=== PATIENT | female | born 1965 | race Caucasian/White ===

== ENCOUNTER 2016-03-15 12:44 | Inpatient (IN) | payer MEDICAID ==
[~2016-03-15] VITALS: Ht 152.4 cm; Wt 106.8 kg
[2016-03-15] MEDS ORDERED: SODIUM CHLORIDE 0.9% 1,000 ML ONE (15:24)
[2016-03-15 21:00] VITALS: Ht 152.4 cm; Wt 106.8 kg
[2016-03-15] MEDS ORDERED: BISACODYL EC 5 MG TAB PO PRN (21:20)
[2016-03-15] MEDS ORDERED: MAG HYDROX 30 ML UDC PO PRN (21:20)
[2016-03-15] MEDS ORDERED: BISACODYL 10 MG SUPP RECTAL PRN (21:20)
[2016-03-15] MEDS ORDERED: SALINE FLUSH 10 ML FLUSH PRN (21:20)
[2016-03-15] MEDS ORDERED: HALOPERIDOL 5 MG/ML VIAL IV PRN (21:20)
[2016-03-15 21:56] VITALS: BP_SYST 141; RESP 18; TEMP 98.9
[2016-03-16] MEDS ORDERED: SODIUM CHLORIDE 0.9% FLUSH BAG 500 ML IV SCH (06:00)
[2016-03-16] MEDS ORDERED: SALINE FLUSH 10 ML FLUSH SCH (08:00)
== END 2016-03-15 22:08 | disposition home or self-care (01) | DRG 885 ==
LOC: ENRESERVDT → ENRESERVTM → ER 12:44 → EMR 15:03 → PSY 17:54
PROVIDERS: ADMIT Psychiatry & Neurology Psychiatry; ATTEND Psychiatry & Neurology Psychiatry
DX: F29 Unspecified psychosis not due to a substance or known physiological condition (principal); J44.9 Chronic obstructive pulmonary disease, unspecified; K21.9 Gastro-esophageal reflux disease without esophagitis; Z87.891 Personal history of nicotine dependence
CPT/HCPCS: 36415; 70450; 80053; 80307; 80320; 80329; 81003; 84439; 84443; 85025; 96360; 99223

== ENCOUNTER 2016-03-15 21:10 | Inpatient (IN) | payer MEDICAID ==
[~2016-03-15] VITALS: Ht 152.4 cm; Wt 106.1 kg
[2016-03-15] MEDS ORDERED: ACETAMINOPHEN 325 MG TAB PO PRN (21:25)
[2016-03-15] MEDS ORDERED: BISACODYL EC 5 MG TAB PO PRN (21:25)
[2016-03-15] MEDS ORDERED: SALINE FLUSH 10 ML FLUSH PRN (21:25)
[2016-03-15] MEDS ORDERED: BISACODYL 10 MG SUPP RECTAL PRN (21:25)
[2016-03-15] MEDS ORDERED: HALOPERIDOL 5 MG/ML VIAL IV PRN (21:25)
[2016-03-15] MEDS ORDERED: MAG HYDROX 30 ML UDC PO PRN (21:25)
[2016-03-15] MEDS ORDERED: [UNRECOGNIZED DRUG - OTHER] XX SCH (22:14)
[2016-03-15 22:37] VITALS: BP_SYST 134; BP_SYST 142; RESP 18; TEMP 98.8
[2016-03-15 22:39] VITALS: Ht 152.4 cm; Wt 106.1 kg
[2016-03-15] MEDS: DUONEB INH SCH (22:40)
[2016-03-15 22:44] VITALS: RESP 18
[2016-03-15] MEDS ORDERED: LEVOFLOXACIN 500 MG TAB PO ONE (22:45)
[2016-03-16] VITALS (7 sets, daily range): BP systolic 92–155; RESP 14–20; TEMP 97.5–98.6
[2016-03-16] MEDS: GABAPENTIN 300 MG CAP PO SCH ×3 (00:01→21:55)
[2016-03-16] MEDS: SODIUM CHLORIDE 0.9% 1,000 ML IV SCH ×3 (00:02→16:38)
[2016-03-16] MEDS: DUONEB INH SCH ×5 (02:43→22:51)
[2016-03-16] MEDS: SODIUM CHLORIDE 0.9% FLUSH BAG 500 ML IV SCH (06:00)
[2016-03-16] MEDS: PANTOPRAZOLE 40 MG TAB PO SCH (06:13)
[2016-03-16] MEDS: SALINE FLUSH 10 ML FLUSH SCH ×2 (08:00→20:00)
[2016-03-16] MEDS: FLUTICASONE 0.05% NA BTL NARE EACH SCH ×3 (09:00→21:54)
[2016-03-16] MEDS: LEVOFLOXACIN 250 MG TAB PO SCH (09:37)
[2016-03-16] MEDS: DOCUSATE SOD 100 MG CAP PO SCH ×2 (09:37→21:55)
[2016-03-16] MEDS: FERROUS SULF 325 MG TAB PO SCH ×3 (09:37→21:55)
[2016-03-16] MEDS ORDERED: LORAZEPAM 2 MG/ML VIAL IV PRN (17:40)
[2016-03-16] MEDS ORDERED: Atorvastatin 10 MG TAB PO SCH (21:00)
[2016-03-17] MEDS: SODIUM CHLORIDE 0.9% FLUSH BAG 500 ML IV SCH (02:35)
[2016-03-17 04:04] VITALS: BP_SYST 114; RESP 18; TEMP 97.8
[2016-03-17] MEDS: PANTOPRAZOLE 40 MG TAB PO SCH (05:56)
[2016-03-17] MEDS: DUONEB INH SCH ×2 (07:10→14:27)
[2016-03-17] MEDS: SALINE FLUSH 10 ML FLUSH SCH (08:00)
[2016-03-17 08:15] VITALS: BP_SYST 142; RESP 18; TEMP 98.3
[2016-03-17] MEDS: FERROUS SULF 325 MG TAB PO SCH (08:29)
[2016-03-17] MEDS: LEVOFLOXACIN 250 MG TAB PO SCH (08:29)
[2016-03-17] MEDS: FLUTICASONE 0.05% NA BTL NARE EACH SCH (08:29)
[2016-03-17] MEDS: GABAPENTIN 300 MG CAP PO SCH (08:29)
[2016-03-17] MEDS: DOCUSATE SOD 100 MG CAP PO SCH (08:30)
[2016-03-17 10:50] VITALS: BP_SYST 137; RESP 18; TEMP 98.1
[2016-03-17] MEDS ORDERED: QUETIAPINE XR 50 MG TAB PO ONE (10:50)
[2016-03-17] MEDS: SODIUM CHLORIDE 0.9% 1,000 ML IV SCH (10:52)
[2016-03-17] MEDS ORDERED: TRAZODONE 100 MG TAB PO PRN (11:00)
[2016-03-17 14:01] VITALS: BP_SYST 155; RESP 16; TEMP 98.1
[2016-03-17 14:12] VITALS: BP_SYST 155; RESP 16; TEMP 98.1
[2016-03-17] MEDS ORDERED: QUETIAPINE XR 50 MG TAB PO SCH (17:00)
== END 2016-03-17 15:28 | DRG 683 ==
LOC: ENRESERVDT → ENRESERVTM → 4NT 21:11 → ENPENDDIS 21:11
PROVIDERS: ADMIT Family Medicine; ATTEND Family Medicine
DX: N17.9 Acute kidney failure, unspecified (principal); F33.3 Major depressive disorder, recurrent, severe with psychotic symptoms; Z68.42 Body mass index [BMI] 45.0-49.9, adult; J44.9 Chronic obstructive pulmonary disease, unspecified; G47.33 Obstructive sleep apnea (adult) (pediatric); J45.909 Unspecified asthma, uncomplicated; J30.9 Allergic rhinitis, unspecified; E78.5 Hyperlipidemia, unspecified; K21.9 Gastro-esophageal reflux disease without esophagitis; E66.01 Morbid (severe) obesity due to excess calories; Z87.891 Personal history of nicotine dependence
CPT/HCPCS: 71010; 76770; 80048; 80053; 80307; 85025; 94640; 94799; 99223; 99232

== ENCOUNTER 2016-03-17 11:54 | Inpatient (IN) | payer MEDICAID ==
[~2016-03-17] VITALS: Ht 152.4 cm; Wt 106.1 kg
[2016-03-17] MEDS: DUONEB INH SCH ×3 (00:08→23:00)
[2016-03-17] MEDS ORDERED: HALOPERIDOL 5 MG/ML VIAL IM PRN (11:55)
[2016-03-17] MEDS ORDERED: DIPHENHYDRAMINE 50 MG/ML VIAL IM PRN (11:55)
[2016-03-17] MEDS ORDERED: HALOPERIDOL 5 MG TAB PO PRN (11:55)
[2016-03-17] MEDS ORDERED: LORAZEPAM 2 MG TAB PO PRN (11:55)
[2016-03-17] MEDS ORDERED: DIPHENHYDRAMINE 50 MG CAP PO PRN (11:55)
[2016-03-17] MEDS ORDERED: ALU/MAG/SIM 30 ML UDC PO PRN (11:55)
[2016-03-17] MEDS ORDERED: LORAZEPAM 2 MG/ML VIAL IM PRN (11:55)
[2016-03-17] MEDS ORDERED: MAG HYDROX 30 ML UDC PO PRN (11:55)
[2016-03-17 15:46] VITALS: BP_SYST 139; RESP 18; TEMP 98.5
[2016-03-17 16:06] VITALS: RESP 18
[2016-03-17 16:09] VITALS: Ht 152.4 cm; Wt 106.1 kg
[2016-03-17] MEDS: QUETIAPINE XR 50 MG TAB PO SCH (17:35)
[2016-03-17 19:08] VITALS: BP_SYST 141; RESP 20; TEMP 98.7
[2016-03-17] MEDS: FLUTICASONE 0.05% NA BTL NARE EACH SCH (21:00)
[2016-03-17] MEDS: DOCUSATE SOD 100 MG CAP PO SCH (21:00)
[2016-03-17] MEDS: TRAZODONE 50 MG TAB PO PRN (22:08)
[2016-03-18] MEDS: DUONEB INH SCH ×3 (00:08→19:37)
[2016-03-18] MEDS: PANTOPRAZOLE 40 MG TAB PO SCH (06:40)
[2016-03-18] MEDS: LEVOTHYROXINE 0.05 MG TAB PO SCH (06:40)
[2016-03-18] MEDS ORDERED: LEVOFLOXACIN 250 MG TAB PO SCH (09:00)
[2016-03-18] MEDS: FLUTICASONE 0.05% NA BTL NARE EACH SCH ×2 (09:54→21:46)
[2016-03-18] MEDS: DOCUSATE SOD 100 MG CAP PO SCH ×2 (09:54→21:37)
[2016-03-18 10:09] VITALS: BP_SYST 130; RESP 17
[2016-03-18] MEDS: QUETIAPINE XR 50 MG TAB PO SCH (16:58)
[2016-03-18 19:30] VITALS: BP_SYST 139; RESP 18
[2016-03-19] MEDS: DUONEB INH SCH ×3 (00:08→19:46)
[2016-03-19] MEDS: PANTOPRAZOLE 40 MG TAB PO SCH (06:42)
[2016-03-19] MEDS: LEVOTHYROXINE 0.05 MG TAB PO SCH (06:42)
[2016-03-19] MEDS: FLUTICASONE 0.05% NA BTL NARE EACH SCH ×2 (09:04→21:04)
[2016-03-19] MEDS: DOCUSATE SOD 100 MG CAP PO SCH ×2 (09:04→21:00)
[2016-03-19 10:03] VITALS: BP_SYST 125; RESP 16; TEMP 97.4
[2016-03-19] MEDS: QUETIAPINE XR 300 MG TAB PO SCH (17:25)
[2016-03-19 19:02] VITALS: BP_SYST 122; RESP 18; TEMP 99.2
[2016-03-20] MEDS: DUONEB INH SCH ×5 (00:08→23:00)
[2016-03-20] MEDS: PANTOPRAZOLE 40 MG TAB PO SCH (06:39)
[2016-03-20] MEDS: LEVOTHYROXINE 0.05 MG TAB PO SCH (06:39)
[2016-03-20] MEDS: FLUTICASONE 0.05% NA BTL NARE EACH SCH ×2 (09:18→20:14)
[2016-03-20] MEDS: DOCUSATE SOD 100 MG CAP PO SCH ×2 (09:18→20:14)
[2016-03-20 11:31] VITALS: BP_SYST 136; RESP 18; TEMP 97.8
[2016-03-20] MEDS: QUETIAPINE XR 300 MG TAB PO SCH (17:07)
[2016-03-20 19:09] VITALS: BP_SYST 142; RESP 18; TEMP 98.5
[2016-03-21] MEDS: PANTOPRAZOLE 40 MG TAB PO SCH (06:53)
[2016-03-21] MEDS: LEVOTHYROXINE 0.05 MG TAB PO SCH (06:53)
[2016-03-21] MEDS: DUONEB INH SCH ×4 (07:55→23:15)
[2016-03-21] MEDS: FLUTICASONE 0.05% NA BTL NARE EACH SCH ×2 (09:26→20:37)
[2016-03-21] MEDS: DOCUSATE SOD 100 MG CAP PO SCH ×2 (09:26→20:37)
[2016-03-21 09:54] VITALS: BP_SYST 120; RESP 17; TEMP 97.8
[2016-03-21] MEDS ORDERED: QUETIAPINE XR 50 MG TAB PO SCH (17:00)
[2016-03-21] MEDS: QUETIAPINE XR 200 MG TAB PO SCH (17:32)
[2016-03-21 19:06] VITALS: BP_SYST 135; RESP 20; TEMP 97.8
[2016-03-21] MEDS: TRAZODONE 50 MG TAB PO PRN (20:37)
[2016-03-22] MEDS: LEVOTHYROXINE 0.05 MG TAB PO SCH (06:39)
[2016-03-22] MEDS: PANTOPRAZOLE 40 MG TAB PO SCH (06:39)
[2016-03-22] MEDS: DUONEB INH SCH ×3 (07:42→23:50)
[2016-03-22 09:45] VITALS: BP_SYST 114; RESP 20; TEMP 98.4
[2016-03-22] MEDS: DOCUSATE SOD 100 MG CAP PO SCH ×2 (09:58→20:46)
[2016-03-22] MEDS: FLUTICASONE 0.05% NA BTL NARE EACH SCH ×2 (09:58→20:46)
[2016-03-22] MEDS: QUETIAPINE XR 200 MG TAB PO SCH (16:38)
[2016-03-22] MEDS: TRAZODONE 50 MG TAB PO PRN (20:46)
[2016-03-22] MEDS: ACETAMINOPHEN 325 MG TAB PO PRN (20:47)
[2016-03-22 22:20] VITALS: BP_SYST 112; RESP 20; TEMP 98
[2016-03-23] MEDS: PANTOPRAZOLE 40 MG TAB PO SCH (06:43)
[2016-03-23] MEDS: LEVOTHYROXINE 0.05 MG TAB PO SCH (06:43)
[2016-03-23] MEDS: DUONEB INH SCH ×4 (08:04→23:22)
[2016-03-23 08:52] VITALS: BP_SYST 102; RESP 18; TEMP 97.6
[2016-03-23] MEDS: FLUTICASONE 0.05% NA BTL NARE EACH SCH ×2 (09:08→21:00)
[2016-03-23] MEDS: DOCUSATE SOD 100 MG CAP PO SCH ×2 (09:09→21:00)
[2016-03-23] MEDS: ACETAMINOPHEN 325 MG TAB PO PRN ×2 (10:57→16:42)
[2016-03-23] MEDS: QUETIAPINE XR 200 MG TAB PO SCH (16:41)
[2016-03-23 19:07] VITALS: BP_SYST 137; RESP 18; TEMP 98.3
[2016-03-23] MEDS: TRAZODONE 50 MG TAB PO PRN (22:10)
[2016-03-24] MEDS: LEVOTHYROXINE 0.05 MG TAB PO SCH (06:35)
[2016-03-24] MEDS: PANTOPRAZOLE 40 MG TAB PO SCH (06:35)
[2016-03-24 07:39] VITALS: BP_SYST 110; RESP 18; TEMP 97.5
[2016-03-24] MEDS: DUONEB INH SCH (07:50)
[2016-03-24] MEDS: DOCUSATE SOD 100 MG CAP PO SCH (08:09)
[2016-03-24] MEDS: ACETAMINOPHEN 325 MG TAB PO PRN (08:10)
[2016-03-24] MEDS: FLUTICASONE 0.05% NA BTL NARE EACH SCH (09:48)
[2016-03-24 11:16] VITALS: BP_SYST 110; RESP 18; TEMP 97.5
[2016-03-24 12:19] VITALS: BP_SYST 110; RESP 18; TEMP 97.5
== END 2016-03-24 12:47 | disposition home or self-care (01) | DRG 885 ==
LOC: PSY 15:41
PROVIDERS: ADMIT Psychiatry & Neurology Psychiatry; ATTEND Psychiatry & Neurology Psychiatry
DX: F29 Unspecified psychosis not due to a substance or known physiological condition (principal); J44.9 Chronic obstructive pulmonary disease, unspecified; E78.5 Hyperlipidemia, unspecified; E03.9 Hypothyroidism, unspecified; K21.9 Gastro-esophageal reflux disease without esophagitis; G47.00 Insomnia, unspecified; K59.00 Constipation, unspecified
CPT/HCPCS: 80048; 94640; 94799